=== PATIENT | male | born 1975 | race Two or more races ===

== ENCOUNTER → 2023-08-02 19:43 | Outpatient (REF) | payer OTHER, SELFPAY | LOC: MRI 3T 19:43 | PROVIDERS: ATTENDING PHYSICIAN Physician Assistant; FAMILY PHYSICIAN Family Medicine | DX: M54.42 Lumbago with sciatica, left side (principal); G89.29 Other chronic pain; M54.41 Lumbago with sciatica, right side | CPT/HCPCS: 72148 ==

== ENCOUNTER 2023-08-14 16:07 | Emergency (ER) | payer OTHER, SELFPAY ==
[2023-08-14 16:13] VITALS: BP 141/79
[2023-08-14 17:00] VITALS: BP 141/88
--- NOTE | 2023-08-14 17:18 | ED.GENMED ---
History of Present Illness
General
Chief Complaint: Musculo-Skeletal Complaint
Time Seen by Provider: 08/14/23 16:44
Travel History
Have you had any contact with someone who has COVID-19?: No
Do you have any symptoms of coronavirus? Fever > 100 degrees, chills, cough, shortness of breath, sore throat, loss of taste or smell, muscle aches, or headache?: No
History of Present Illness
History of Present Illness:
Patient presents to the emergency department with abnormal lumbar MRI from last week. Notes that he was seen by his orthopedist today who referred him to the emergency department for evaluation. His MRI reports that he has appearing bone marrow
throughout the spine. Patient notes months of lower extremity symptoms with shooting pains and tingling in the left leg worse than the right. Denies fevers but states today he has felt very cold and chilled. Denies weight loss. Denies medical
issues in the past.
Phy Exam
Physical Exam
Physical Exam:
GENERAL APPEARANCE: NAD, well developed/ well nourished
EYES lids/conjunctiva normal
EARS/NOSE/THROAT Mucous membranes moist, uvula midline without oral pharyngeal erythema, exudate or swelling
HEAD/NECK normocephalic atraumatic, neck is supple.
RESPIRATORY respiratory effort normal, speaks in full sentences, no accessory muscle use. Lungs clear to auscultation without rhonchi, wheezes, rales
CARDIAC Regular rate and rhythm, no edema.
ABDOMINAL Soft, ND/NT. No pulsatile masses on exam, rebound tenderness, Najera sign or pain over Mcburney's point.
MUSCLES/EXTREMITIES No abnormal range of motion, no swelling.
Back: There is no midline or bony tenderness or palpable abnormalities. He has full sensation in his perineum in general region. He has good rectal tone. He has normal reflexes in bilateral lower extremities. Does endorse abnormal sensation to
light touch throughout left lower extremity and proximal right lower extremity. Legs are warm and well-perfused with palpable pedal pulses. 5 out of 5 dorsi flexion and plantarflexion of the knees bilaterally
SKIN Warm, pink and dry. No rashes
NEUROLOGICAL Speech is clear and appropriate. Normal level of consciousness. 5/5 strength in all extremities.
PSYCH Normal mood and affect. Judgement/competence is appropriate
Course
Orders/Labs/Results
Orders:
Orders
08/14/23 17:16
CMP [Comprehensive Metabolic Panel] Stat
Complete Blood Count/With Diff Urgent
PTT Urgent
Prothrombin Time Urgent
08/14/23 17:16
08/14/23 17:16
Vital Signs
Initial and Last Documented VS:
Initial Vital Signs
Temp Pulse Resp BP Pulse Ox
98.6 F 88 16 141/79 99
08/14/23 16:13 08/14/23 16:13 08/14/23 16:13 08/14/23 16:13 08/14/23 16:13
Last Documented Vital Signs
Temp Pulse Resp BP Pulse Ox
98.6 F 88 16 132/86 96
08/14/23 16:13 08/14/23 16:13 08/14/23 16:13 08/14/23 19:00 08/14/23 19:18
*Critical Care Note
Total Time (30-74mins, 75-104mins- exclusive of procedures): Not Applicable
ED Attending Note
ED Attending Note
ED Attending Note:
Patient presents emergency department for medical workup with bone marrow abnormality on MRI spine. There is no evidence of acute cord syndrome or conus syndrome at this time. Discussed case with his orthopedist Dr. Blanco. Dr. Blanco states that
he did not send him to the emergency department for this workup, however he told him to see his primary doctor to discuss the change to the bone marrow. He is scheduled for an epidural steroid injection for his lumbar spine and has a prescription
for thoracic MRI as he is having pain there as well. no surgical intervention planned at this time.
-
Portions of this chart may have been created with voice recognition software.� Occasional wrong word or��sound alike� substitutions may have occurred due to the inherent limitations of voice recognition software.
Discharge Plan
Departure
Patient Disposition: Home (Routine Discharge)
Date of Disposition: 08/14/23
Time of Disposition: 19:13
Patient with high blood pressure during this ER visit?: Yes
Discharge Problem:
Disc herniation
Instructions: Herniated Disc (DC)
Prescriptions:
No Action
No Current Medications
0
Referrals:
Erich Maier, DO [Family Provider] -
Activity Restrictions/Additional Instructions:
Please follow-up closely with your primary care doctor to discuss abnormal bone marrow findings on the MRI. Your blood counts look normal today. Please follow-up with the orthopedist as scheduled for your epidural injection for your herniated
disc. Return to the the emergency department with weakness in the lower extremities, bowel or bladder incontinence or lack of sensation in scrotal/rectal area
Interventions
Interventions:
*Risk Screen - Suicide Last Done: 08/14/23 16:56
*General Assessment Last Done: 08/14/23 18:25
*Neglect/Abuse Screening Last Done: 08/14/23 16:56
ED- Fall Risk Assessment Last Done: 08/14/23 16:56
*ED COVID-19 Vaccine History Last Done: 08/14/23 16:13
*Nursing Disposition Last Done: 08/14/23 19:36
ED-Musculoskeletal Assessment Last Done: 08/14/23 16:56
Discharge Date and Time
Discharge Date/Time: 08/14/23 19:37
Print Language: BENGALI
[2023-08-14 17:25] LABS: % Basophils 0.9 % (0-2); % Eosinophils 2.3 % (0-6); % Immature Granulocytes 0.2 % (0-0.5); % Lymphocytes 33.7 % (20.5-51.1); % Monocytes 8.9 % (1.7-9.3); Absolute Basophils 0.1 10^3/uL (0-0.2); Absolute Eosinophils 0.1 10^3/uL (0-0.7); Absolute Lymphocytes 1.9 10^3/uL (1.2-3.4); Absolute Monocytes 0.5 10^3/uL (0.1-0.6); Absolute Neutrophils 3.1 10^3/uL (1.4-6.5); Hematocrit 42.8 % (39.0-52.0); Hemoglobin 14.7 g/dL (13.0-18.0); Mean Corp Hgb Conc. 34.3 g/dL (33.0-37.0); Mean Corpuscular Hgb 27.5 pg (27.0-31.0); Mean Platelet Volume 9.9 fL (7.4-10.4); Nucleated Red Blood Cells % 0 % (-); Platelet Count 219 10^3/uL (130-400); Red Blood Cell Count 5.35 10^6/uL (4.70-6.10); Red Cell Dist. Width 13.1 % (11.5-14.5); White Blood Cell Count 5.8 10^3/uL (4.8-10.8)
[2023-08-14 17:35] LABS: INR 1.07; PT 13.9 Sec (11.4-14.6)
[2023-08-14 17:36] LABS: APTT 26.2 Sec (23.4-35.0)
[2023-08-14 17:45] LABS: ALT (SGPT) 49 U/L (0-50); AST (SGOT) 37 U/L (17-59); Albumin 4.8 g/dl (3.5-5.0); Alkaline Phosphatase 76 U/L (38-126); Blood Urea Nitrogen 18 mg/dl (9-20); Calcium 9.6 mg/dl (8.4-10.2); Carbon Dioxide 26 mmol/L (22-30); Chloride 104 mmol/L (98-107); Glucose 90 mg/dl (70-99); Sodium 136 mmol/L (135-145); Total Bilirubin 0.6 mg/dl (0.2-1.3); Total Protein 7.7 g/dl (6.3-8.2); eGFR > 60.00
[2023-08-14 18:00] VITALS: BP 119/65
[2023-08-14 19:00] VITALS: BP 132/86
== END 2023-08-14 19:37 | disposition home or self-care (01) ==
LOC: EMR 16:07
PROVIDERS: EMERGENCY PHYSICIAN Emergency Medicine; FAMILY PHYSICIAN Family Medicine
DX: M51.26 Other intervertebral disc displacement, lumbar region (principal)
CPT/HCPCS: 99283; 80053; 85025; 85610; 85730